=== PATIENT | male | born 1935 | race Caucasian/White ===

== ENCOUNTER 2016-07-29 14:24 | Emergency (ER) | payer MEDICARE, BC ==
[2016-07-29 14:33] VITALS: BP 141/68
--- NOTE | 2016-07-29 15:37 | EDM.PDOC ---
ED HPI GENERAL MEDICAL PROBLEM - General Chief Complaint: General Stated Complaint: circumcision bleeding Time Seen by Provider: 07/29/16 14:37 Source of Information: Reports: Patient History Limitations: Reports: No limitations - History of Present Illness INITIAL COMMENTS - FREE TEXT/NARRATIVE: Patient concerned about amount of bleeding from circumcision site. Wrapped in gauze, has pad on in underwear. Performed yesterday. Has Robertson in place. No complaints otherwise. Treatments LEGAL PROCESS SPECIALIST: Reports: Dressing(s) - Related Data Allergies Allergy/AdvReac Type Severity Reaction Status Date / Time cephalexin monohydrate Allergy Hives Verified 07/29/16 14:34 [From Keflex] Home Meds: Home Meds Fenofibrate 160 mg PO DAILY 06/02/15 [History] Simvastatin [Zocor] 40 mg PO BEDTIME 06/02/15 [History] SitaGLIPtin [Januvia] 100 mg PO DAILY 06/02/15 [History] metFORMIN HCl [Metformin HCl] 1,000 mg PO BID 06/02/15 [History] oxyCODONE HCl/Acetaminophen [oxyCODONE-Acetaminophen 5-325] 1 - 2 tab PO Q4H PRN 06/02/15 [History] Past Medical History HEENT History: Reports: Impaired vision, Other (see below) 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 Endocrine/Metabolic History: Reports: Diabetes, type II - Infectious Disease History Infectious Disease History: Reports: Chicken pox Other Infectious Disease History: chicken pox when was a kid - Past Surgical History HEENT Surgical History: Reports: Detached retina Musculoskeletal Surgical History: Reports: Knee replacement Other Musculoskeletal Surgeries/Procedures:: bilateral Social & Family History - Tobacco Use Smoking Status *Q: Never Smoker Second Hand Smoke Exposure: No - Recreational Drug Use Recreational Drug Use: No ED ROS GENERAL - Review of Systems Review Of Systems: ROS reveals no pertinent complaints other than HPI. ED EXAM, GENERAL - Physical Exam Exam: See Below Exam Limited By: No limitations General Appearance: alert, WD/WN, no apparent distress (Male) Exam: Other (Gauze wrapped around penis bloody/dry and stuck to penis. Soaked to remove bandage. Circumcision site appears to be healing well. Small area of blood noted where tissue was cut, no active bleeding at this time. ) Course - Vital Signs Last Recorded V/S: Last Vital Signs Temp 36.7 C 07/29/16 14:30 Pulse 84 07/29/16 14:30 Resp 16 07/29/16 14:30 BP 141/68 H 07/29/16 14:30 Pulse Ox 96 07/29/16 14:30 - Re-Assessments/Exams Free Text/Narrative Re-Assessment/Exam: Bandage changed by nurse. Non-stick vaseline gauze used near skin. Recommend recheck of wound and dressing change Wednesday morning (two days from now). Patient to follow up earlier if he has problems. Consider removing Robertson on Wednesday also if patient is comfortable. Departure - Departure Time of Disposition: 16:14 Disposition: Home, Self-Care 01 Condition: good Clinical Impression: Aftercare for circumcision Instructions: Circumcision, Adult, Care After, [id number] Referrals: PCP,Unknown [Ordering Only Provider] - Forms: ED Department Discharge Additional Instructions: Follow up Wednesday morning for dressing change. Follow up earlier as needed if you have problems.
== END 2016-07-29 16:30 | disposition home or self-care (01) ==
LOC: LL.ED 14:24
DX: Z48.816 Encounter for surgical aftercare following surgery on the genitourinary system (principal); E11.9 Type 2 diabetes mellitus without complications; H54.7 Unspecified visual loss; Z88.8 Allergy status to other drugs, medicaments and biological substances; Z79.899 Other long term (current) drug therapy; Z79.84 Long term (current) use of oral hypoglycemic drugs
CPT/HCPCS: 99281; 99283

== ENCOUNTER 2017-10-18 18:05 | Emergency (ER) | payer MEDICARE, BC ==
--- NOTE | 2017-10-18 18:18 | EDM.PDOC ---
ED HPI GENERAL MEDICAL PROBLEM - General Chief Complaint: Laceration Stated Complaint: fall with facial laceration Time Seen by Provider: 10/18/17 18:06 Source of Information: Reports: Patient, EMS History Limitations: Reports: No Limitations - History of Present Illness INITIAL COMMENTS - FREE TEXT/NARRATIVE: Patient brought in by EMS after fall. Was out mowing grass and ran out of gas. He was working on getting gas when he felt like he was leaning forward/suddenly off balance/and fell forward. Landed face down on grass. Denies LOC. Has abrasions of face. Patient denies any other injuries and says that he "feels fine" now. ROS negative for neck/chest/abd/back/lower limb/left upper limb pain. Right hand feels a bit stiff but no significant pain per patient. Denies feeling any pain in head/chest before fall. No SOB/diaphoresis/vertigo at time of fall. No history of similar falls in past. He did once have a syncopal episode after replacement surgery in 2016 Hx diabetes/high cholesterol Was mowing in 80+ degree humid weather. Family relates that patient has had shuffling gait that has gotten progressively worse over the past year and they have concerns that he may have Parkinsons. No formal evaluation. 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 Cardiovascular History: Reports: High Cholesterol Endocrine/Metabolic History: Reports: Diabetes, Type II - Infectious Disease History Infectious Disease History: Reports: Chicken Pox Other Infectious Disease History: chicken pox when was a kid - Past Surgical History HEENT Surgical History: Reports: Detached Retina Male Surgical History: Reports: Circumcision Musculoskeletal Surgical History: Reports: Knee Replacement Social & Family History - Tobacco Use Smoking Status *Q: Never Smoker - Alcohol Use Alcohol Use History: No - Recreational Drug Use Recreational Drug Use: No Drug Use in Last 12 Months: No ED ROS GENERAL - Review of Systems Review Of Systems: See Below Constitutional: Reports: No Symptoms HEENT: Reports: Nosebleed, Nose Pain (mild). Denies: Ear Pain, Eye Pain, Rhinitis, Throat Pain, Throat Swelling, Vertigo, Vision Change Respiratory: Reports: No Symptoms Cardiovascular: Reports: No Symptoms GI/Abdominal: Reports: No Symptoms : Reports: No Symptoms Musculoskeletal: Reports: Other (denies any acute changes other than right hand discomfort per HPI) Skin: Reports: Wound (forehead, nose) Neurological: Reports: No Symptoms, Gait Disturbance (as per HPI, patient has adopted a more shuffling gait/forward lean over the past 6-12months). Denies: Dizziness, Headache, Paresthesia, Pre-Existing Deficit, Syncope, Tingling, Tremors, Trouble Speaking Psychiatric: Reports: No Symptoms Hematologic/Lymphatic: Reports: No Symptoms ED EXAM, SKIN/RASH Exam: See Below Exam Limited By: No Limitations General Appearance: Alert, WD/WN, No Apparent Distress Eye Exam: Right Eye: Vision Changes (patient is blind in this eye), Left Eye: PERRL (right side is blind, milky appearance to cornea), Bilateral Eye: EOMI Ears: Normal External Exam, Normal Canal Nose: Other (dried blood right nare). No: Nasal Tenderness, Nasal Deformity, Nasal Swelling Throat/Mouth: Normal Lips, Normal Voice, No Airway Compromise, Other (upper dentures, has a few remaining lower teeth) Head: Other (abrasions over forehead and upper portion of nose) Neck: Normal Inspection, Supple, Non-Tender, Full Range of Motion. No: Tender Lateral, Tender Midline Respiratory/Chest: No Respiratory Distress, Lungs Clear, Normal Breath Sounds, No Accessory Muscle Use, Chest Non-Tender Cardiovascular: Normal Peripheral Pulses, Regular Rate, Rhythm, No Edema, No Murmur Peripheral Pulses: 2+: Radial (L), Radial (R) GI/Abdominal: Normal Bowel Sounds, Soft, Non-Tender, No Distention (Male) Exam: Deferred Rectal (Males) Exam: Deferred Back Exam: Normal Inspection. No: CVA Tenderness (L), CVA Tenderness (R), Muscle Spasm, Paraspinal Tenderness, Vertebral Tenderness Extremities: Non-Tender, Normal Capillary Refill, Other (patient able to make soft fist using right hand. No focal tenderness noted with palpation. No deformity/swelling/obvious injury) Neurological: Alert, Oriented, CN II-XII Intact, Normal Cognition, No Motor/ Sensory Deficits Psychiatric: Normal Affect, Normal Mood Skin: Warm, Dry, Ecchymosis (under left eye/nose), Wound/Incision (per HPI. Approximately 4cm by 3cm abrasion noted central forehead, 3cm by 3cm abrasion top portion of nose. Did not abrade completely through subcutacious tissue. ) Location, Skin: Head Course - Vital Signs Last Recorded V/S: Last Vital Signs Temp 37.1 C 10/18/17 18:05 Pulse 84 10/18/17 18:15 Resp 20 10/18/17 18:15 BP 164/78 H 10/18/17 18:15 Pulse Ox 97 10/18/17 18:15 - Orders/Labs/Meds Orders: Active Orders 24 hr Category Date Time Status UA W/MICROSCOPIC [URIN] Stat Lab 10/18/17 18:35 Ordered Labs: Laboratory Tests 10/18/17 10/18/17 Range/Units 18:50 18:50 WBC 8.4 (4.0-10.2) K/uL RBC 4.34 (4.33-5.41) M/uL Hgb 13.7 D (13.1-16.8) g/dL Hct 40.8 (39.0-49.0) % MCV 94.0 (84.0-98.0) fL MCH 31.6 (28.2-33.3) pg MCHC 33.6 (31.7-36.0) g/dL RDW 13.8 (11.2-14.1) % Plt Count 229 D (150-350) K/uL Neut % (Auto) 75.1 (45.0-80.0) % Lymph % (Auto) 14.5 (10.0-50.0) % Taylor % (Auto) 7.6 (2.0-14.0) % Eos % (Auto) 2.4 (0.0-5.0) % Baso % (Auto) 0.4 (0.0-2.0) % Neut # (Auto) 6.32 (1.40-7.00) K/uL Lymph # (Auto) 1.22 (0.50-3.50) K/uL Taylor # (Auto) 0.64 (0.00-1.00) K/uL Eos # (Auto) 0.20 (0.00-0.50) K/uL Baso # (Auto) 0.03 (0.00-0.20) K/uL Sodium 143 (136-145) mmol/L Potassium 4.2 (3.5-5.1) mmol/L Chloride 108 H (98-107) mmol/L Carbon Dioxide 27.2 (21.0-32.0) mmol/L BUN 28 H (7-18) mg/dL Creatinine 1.12 (0.51-1.17) mg/dL Est Cr Clr Drug Dosing TNP Estimated GFR (MDRD) > 60 mL/min Glucose 179 H (74-106) mg/dL Calcium 9.4 (8.5-10.1) mg/dL Total Bilirubin 0.4 (0.2-1.0) mg/dL AST 26 (15-37) U/L ALT 48 (12-78) U/L Alkaline Phosphatase 37 L (46-116) IU/L Total Protein 7.1 (6.4-8.2) g/dL Albumin 3.9 (3.4-5.0) g/dL Meds: Medications Discontinued Medications Generic Name Dose Route Start Last Admin Trade Name Freq PRN Reason Stop Dose Admin Neomycin/Polymyxin/Bacitracin 1 each 10/18/17 18:34 10/18/17 18:44 Triple Antibiotic Oint TOP 10/18/17 18:35 1 each ONETIME ONE Administration - Re-Assessments/Exams Free Text/Narrative Re-Assessment/Exam: Unable to repair abrasions on forehead/nose. Will need to heal by secondary intent. Cleansed by nursing staff using normal saline. Antibiotic/dressing then applied. Discussed wound care and precautions at length with both patient, , and son. Recommend wound recheck on , three days from now. To follow up as needed for any problems. Encouraged to contact primary provider for both this and also to look at Neuro referral for evaluation of Parkinson's concerns. Patient was walked in lina[place] by nurse. He was observed to have some difficulty initiating walk. Had more rapid pace. He then made conscious effort to slow gait down and take longer strides. He was however able to successfully ambulate down/back the linares as well as walk to bathroom. Departure - Departure Time of Disposition: 19:23 Disposition: Home, Self-Care 01 Condition: Good Clinical Impression: Abrasion of face Qualifiers: Encounter type: initial encounter Qualified Code(s): S00.81XA - Abrasion of other part of head, initial encounter Fall Qualifiers: Encounter type: initial encounter Qualified Code(s): W19.XXXA - Unspecified fall, initial encounter - Discharge Information Instructions: Parkinson Disease, [id number], Abrasion, [id number] Referrals: Anupama Smith PA-C [Primary Care Provider] - Forms: ED Department Discharge Additional Instructions: Follow up for wound checks/concerns as needed. Watch for any signs of infection and return to clinic/ER if this is noted. Follow up with primary provider and obtain referral to Neurology for evaluation of gait/etc for possible Parkinsonism. Use caution when ambulating. - My Orders Last 24 Hours: My Active Orders 10/18/17 18:35 UA W/MICROSCOPIC [URIN] Stat - Assessment/Plan Last 24 Hours: My Active Orders 10/18/17 18:35 UA W/MICROSCOPIC [URIN] Stat
[2017-10-18 18:31] VITALS: BP 164/78
[2017-10-18] MEDS: Bacitracin/Neomycin/Polymyxin B Oint 0.9 GM U/D Packet TOP ONE (18:44)
[2017-10-18 19:09] LABS: CHLORIDE,CL 108 mmol/L (98-107); SODIUM,NA 143 mmol/L (136-145)
== END 2017-10-18 19:40 | disposition home or self-care (01) ==
LOC: LL.ED 18:05
DX: S00.83XA Contusion of other part of head, initial encounter (principal); S00.33XA Contusion of nose, initial encounter; S00.81XA Abrasion of other part of head, initial encounter; E11.9 Type 2 diabetes mellitus without complications; Z88.1 Allergy status to other antibiotic agents; E78.00 Pure hypercholesterolemia, unspecified; Z79.84 Long term (current) use of oral hypoglycemic drugs; Z79.899 Other long term (current) drug therapy; W01.0XXA Fall on same level from slipping, tripping and stumbling without subsequent striking against object, initial encounter
CPT/HCPCS: 36415; 80053; 81001; 85025; 99284

== ENCOUNTER 2020-10-25 11:40 | Emergency (ER) | payer MEDICARE, BC ==
[2020-10-25 11:51] VITALS: BP 137/74; PULSE 79
--- NOTE | 2020-10-25 12:29 | EDM.PDOC ---
ED HPI GENERAL MEDICAL PROBLEM - General Chief Complaint: Upper Extremity Injury/Pain Stated Complaint: fall Time Seen by Provider: 10/25/20 12:09 Source of Information: Reports: Patient History Limitations: Reports: No Limitations - History of Present Illness INITIAL COMMENTS - FREE TEXT/NARRATIVE: Patient fell while out walking. Landed on left arm. No LOC. No breaks in skin. Comes to ER with complaint of some left rib pain and left shoulder discomfort. Denies other injuries. Fall happened approximately 30min prior to presentation. Left Shoulder Pain Score (Numeric/FACES): 8 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 Cardiovascular History: Reports: High Cholesterol Psychiatric History: Reports: None Endocrine/Metabolic History: Reports: Diabetes, Type II - Infectious Disease History Infectious Disease History: Reports: Chicken Pox Other Infectious Disease History: chicken pox when was a kid - Past Surgical History HEENT Surgical History: Reports: Detached Retina Male Surgical History: Reports: Circumcision Musculoskeletal Surgical History: Reports: Knee Replacement Other Musculoskeletal Surgeries/Procedures:: bilateral Social & Family History - Tobacco Use Tobacco Use Status *Q: Never Tobacco User - Caffeine Use Caffeine Use: Reports: Soda Review of Systems - Review of Systems Review Of Systems: See Below Constitutional: Reports: No Symptoms Eyes: Reports: No Symptoms, Glasses Ears: Reports: No Symptoms Nose: Reports: No Symptoms Mouth/Throat: Reports: No Symptoms Respiratory: Reports: No Symptoms Cardiovascular: Reports: Other (left lateral chest pain) GI/Abdominal: Reports: No Symptoms Genitourinary: Reports: No Symptoms Musculoskeletal: Reports: Other (Left shoulder/prox humerus discomfort). Denies: Joint Swelling Skin: Reports: No Symptoms Neurological: Reports: No Symptoms Psychiatric: Reports: No Symptoms ED EXAM, GENERAL - Physical Exam Exam: See Below Exam Limited By: No Limitations General Appearance: Alert, WD/WN, No Apparent Distress Eye Exam: Bilateral Eye: EOMI, PERRL Ears: Hearing Grossly Normal, Other (has hearing aids in place) Ear Exam: Bilateral Ear: Auricle Normal, Canal Normal Nose: No: Nasal Deformity, Nasal Swelling, Nasal Drainage Throat/Mouth: Normal Lips, Normal Voice, No Airway Compromise Head: Atraumatic, Normocephalic. No: Facial Swelling, Facial Tenderness, Sinus Tenderness Neck: Supple, Non-Tender, Full Range of Motion Respiratory/Chest: Lungs Clear, Normal Breath Sounds, No Accessory Muscle Use, Other (tender with palpation over left lateral chest wall, no crepitus. Reproduces patient's pain complaint) Cardiovascular: Regular Rate, Rhythm, No Edema, No Murmur GI/Abdominal: Soft, Non-Tender, No Distention (Male) Exam: Deferred Rectal (Males) Exam: Deferred Back Exam: No: CVA Tenderness (L), CVA Tenderness (R), Muscle Spasm, Paraspinal Tenderness, Vertebral Tenderness Extremities: Limited Range of Motion (left arm, discomfort around anterior shoulder rotator cuff with palpation. Cannot lift arm to 90 degrees. No deformity/bruising/swelling. NVI. Nontender left elbow/forearm/hand) Neurological: Alert, Oriented, CN II-XII Intact, Normal Cognition, Other (no sensory deficit) Psychiatric: Normal Affect, Normal Mood Skin Exam: Warm, Dry, Intact, Normal Color. No: Ecchymosis, Wound/Incision Course - Vital Signs Last Recorded V/S: Last Vital Signs Temp 36.1 C 10/25/20 11:40 Pulse 79 10/25/20 11:40 Resp 18 10/25/20 11:40 BP 137/74 10/25/20 11:40 Pulse Ox 95 10/25/20 11:40 - Orders/Labs/Meds Orders: Active Orders 24 hr Category Date Time Status Ribs 2V wo Chest Lt [CR] Stat Exams 10/25/20 11:44 Taken Shoulder Comp Lt [CR] Stat Exams 10/25/20 11:43 Taken - Re-Assessments/Exams Free Text/Narrative Re-Assessment/Exam: 10/25/20 13:28 Xray performed of left shoulder and left ribs. Shoulder and prox humerus appear intact. Suspicion for fracture left ribs #8, maybe 9. Pending formal radiology review. Plan at this time is to have patient continue PRN Tylenol/ice. Sling left arm for comfort. To perform incentive spirometry. Recommend recheck next week with PCP. Follow up in ER as needed PRN new problems/concerns. Patient agreeable with plan. Departure - Departure Time of Disposition: 12:58 Disposition: Home, Self-Care 01 Condition: Good Clinical Impression: Suspected fracture of rib of left side Qualifiers: Fracture type: closed Qualified Code(s): R29.898 - Other symptoms and signs involving the musculoskeletal system Fall Qualifiers: Encounter type: initial encounter Qualified Code(s): W19.XXXA - Unspecified fall, initial encounter Contusion of left shoulder Qualifiers: Encounter type: initial encounter Qualified Code(s): S40.012A - Contusion of left shoulder, initial encounter - Discharge Information *PRESCRIPTION DRUG MONITORING PROGRAM REVIEWED*: Not Applicable *COPY OF PRESCRIPTION DRUG MONITORING REPORT IN PATIENT BABS: Not Applicable Instructions: How to Use an Incentive Spirometer, How To Use a Sling, Fihn-rz-Beod, Shoulder Pain, Yuvv-[id number], Rib Fracture, [id number] Referrals: Anupama Smith PA-C [Primary Care Provider] - Forms: ED Department Discharge Additional Instructions: Ice sore areas. Take Tylenol for pain as needed. Do not exceed 4000mg daily dose as discussed. If you need something stronger, return to the ER as we discussed. Wear sling for comfort and protection during day. Make an appointment for recheck at your clinic next week. Return to ER if you have sudden worsening problems. Sepsis Event Note (ED) - Evaluation Sepsis Screening Result: No Definite Risk - Focused Exam Vital Signs: Vital Signs Temp Pulse Resp BP Pulse Ox 10/25/20 11:40 36.1 C 79 18 137/74 95 - My Orders Last 24 Hours: My Active Orders 10/25/20 11:43 Shoulder Comp Lt [CR] Stat 10/25/20 11:44 Ribs 2V wo Chest Lt [CR] Stat - Assessment/Plan Last 24 Hours: My Active Orders 10/25/20 11:43 Shoulder Comp Lt [CR] Stat 10/25/20 11:44 Ribs 2V wo Chest Lt [CR] Stat
== END 2020-10-25 13:20 | disposition home or self-care (01) ==
LOC: LL.ED 11:40
DX: S40.012A Contusion of left shoulder, initial encounter (principal); R07.81 Pleurodynia; E11.9 Type 2 diabetes mellitus without complications; E78.00 Pure hypercholesterolemia, unspecified; Z03.89 Encounter for observation for other suspected diseases and conditions ruled out; Z88.1 Allergy status to other antibiotic agents; Z79.84 Long term (current) use of oral hypoglycemic drugs; Z79.899 Other long term (current) drug therapy; W18.30XA Fall on same level, unspecified, initial encounter; Y93.01 Activity, walking, marching and hiking
CPT/HCPCS: 71100-LT; 73030-LT; 99283; 99283-25

== ENCOUNTER 2021-02-09 21:00 | Emergency (ER) | payer MEDICARE, BC ==
[2021-02-09 21:20] VITALS: BP 154/74; PULSE 75
--- NOTE | 2021-02-09 22:00 | EDM.PDOC ---
ED HPI GENERAL MEDICAL PROBLEM - General Chief Complaint: Gastrointestinal Problem Stated Complaint: Constipated Time Seen by Provider: 02/09/21 21:15 Source of Information: Reports: Patient History Limitations: Reports: No Limitations - History of Present Illness INITIAL COMMENTS - FREE TEXT/NARRATIVE: Patient presents to the ED with constipation problems. has been having problems off and on for weeks. Last bowel movement 4-5 days ago but was not significant. Saw his PCP in the past for this, advised miralax. Has been taking this and a fiber pill but not able to have significant bowel movement, but is passing pass, small amounts of stool. Has not tried an enema. Has had a colonoscopy in the remote past. Tonight the rectal pressure became too much for him to tolerate. has been eating and drinking, no fevers or urinary [id number]. 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 Cardiovascular History: Reports: High Cholesterol Psychiatric History: Reports: None Endocrine/Metabolic History: Reports: Diabetes, Type II - Infectious Disease History Infectious Disease History: Reports: Chicken Pox Other Infectious Disease History: chicken pox when was a kid - Past Surgical History HEENT Surgical History: Reports: Detached Retina Male Surgical History: Reports: Circumcision Musculoskeletal Surgical History: Reports: Knee Replacement Other Musculoskeletal Surgeries/Procedures:: bilateral Social & Family History - Tobacco Use Tobacco Use Status *Q: Never Tobacco User Second Hand Smoke Exposure: No - Caffeine Use Caffeine Use: Reports: Soda ED ROS GENERAL - Review of Systems Review Of Systems: See Below Constitutional: Reports: No Symptoms HEENT: Reports: No Symptoms Respiratory: Reports: No Symptoms Cardiovascular: Reports: No Symptoms Endocrine: Reports: No Symptoms GI/Abdominal: Reports: Abdominal Pain (cramping only), Constipation. Denies: Decreased Appetite : Reports: No Symptoms Musculoskeletal: Reports: No Symptoms Skin: Reports: No Symptoms ED EXAM, GENERAL - Physical Exam Exam: See Below Exam Limited By: No Limitations General Appearance: Alert, WD/WN, No Apparent Distress Eye Exam: Bilateral Eye: EOMI, PERRL Ears: Normal External Exam, Hearing Loss Nose: Normal Inspection Throat/Mouth: Normal Inspection, Normal Lips, Normal Teeth, Normal Voice Head: Atraumatic Respiratory/Chest: No Respiratory Distress, Lungs Clear, Normal Breath Sounds Cardiovascular: Regular Rate, Rhythm, No Edema, No Murmur GI/Abdominal: Normal Bowel Sounds, Soft, Non-Tender, No Mass Rectal (Males) Exam: Fecal Impaction, Other (small chronic sore consistent with chronic irritation in the buttock fold. patient states is chronic. not blee ding or infected). No: Black Stool, Bloody Stool Course - Vital Signs Last Recorded V/S: Last Vital Signs Temp 36.2 C 02/09/21 21:17 Pulse 75 02/09/21 21:17 Resp 14 02/09/21 21:17 BP 154/74 H 02/09/21 21:17 Pulse Ox 97 02/09/21 21:17 - Orders/Labs/Meds Orders: Active Orders 24 hr Category Date Time Status Enema [RC] ASDIRECTED Care 02/09/21 21:33 Active - Re-Assessments/Exams Free Text/Narrative Re-Assessment/Exam: 02/09/21 21:59 after some manual disimpaction of stool in the rectal vault, patient was given a fleets enema and had a good bowel movement. encouraged continued miralax, increased fiber and water intake and follow up with PCP Departure - Departure Time of Disposition: 21:55 Disposition: Home, Self-Care 01 Condition: Good Clinical Impression: Constipation, Fecal impaction in rectum - Discharge Information *PRESCRIPTION DRUG MONITORING PROGRAM REVIEWED*: Not Applicable *COPY OF PRESCRIPTION DRUG MONITORING REPORT IN PATIENT BABS: Not Applicable Instructions: Chronic Constipation, Fecal Impaction Additional Instructions: It is important to take in adequate water, especially when you are taking fiber pills to help bulk up the stool and aid in moving it along the colon. one capful of miralax in 10 ounces of water a day will help in keeping you regular along with a stool softener. Do not take laxative pills as your body will become dependent on them. Prune juice, pear juice are natural laxatives. You can also purchase magnesium citrate available over the counter for severe constipation but this is the same medication you take for a bowel prep so be prepared for a large continuous bowel movement. Sepsis Event Note (ED) - Focused Exam Vital Signs: Vital Signs Temp Pulse Resp BP Pulse Ox 02/09/21 21:17 36.2 C 75 14 154/74 H 97 - My Orders Last 24 Hours: My Active Orders 02/09/21 21:33 Enema [RC] ASDIRECTED - Assessment/Plan Last 24 Hours: My Active Orders 02/09/21 21:33 Enema [RC] ASDIRECTED
== END 2021-02-09 22:05 | disposition home or self-care (01) ==
LOC: LL.ED 21:00
DX: K56.41 Fecal impaction (principal); E78.00 Pure hypercholesterolemia, unspecified; E11.9 Type 2 diabetes mellitus without complications; Z79.84 Long term (current) use of oral hypoglycemic drugs; Z88.1 Allergy status to other antibiotic agents; Z79.899 Other long term (current) drug therapy
CPT/HCPCS: 99283; 99284

== ENCOUNTER 2023-12-09 10:59 | Emergency (ER) | payer MEDICARE, OTHER ==
[2023-12-09 11:04] VITALS: BP 146/92; PULSE 81
[2023-12-09 11:35] LABS: BASOPHILS ABSOLUTE AUTO 0.03 K/uL (0.00-0.20); BASOPHILS PERCENT AUTO 0.4 % (0.0-2.0); EOSINOPHILS ABSOLUTE AUTO 0.31 K/uL (0.00-0.50); EOSINOPHILS PERCENT AUTO 4.5 % (0.0-5.0); HEMATOCRIT 41.5 % (39.0-49.0); HEMOGLOBIN 13.6 g/dL (13.1-16.8); LYMPHOCYTES ABSOLUTE AUTO 0.87 K/uL (0.50-3.50); LYMPHOCYTES PERCENT AUTO 12.6 % (10.0-50.0); MEAN CORPUSCULAR HEMOGLOBIN 31.8 pg (28.2-33.3); MEAN CORPUSCULAR HGB CONC 32.8 g/dL (31.7-36.0); MONOCYTES ABSOLUTE AUTO 0.65 K/uL (0.00-1.00); MONOCYTES PERCENT AUTO 9.4 % (2.0-14.0); NEUTROPHILS ABSOLUTE AUTO 5.06 K/uL (1.40-7.00); NEUTROPHILS PERCENT AUTO 73.1 % (45.0-80.0); PLATELET COUNT,PLT 160 K/uL (150-350); RED BLOOD CELL COUNT 4.28 M/uL (4.33-5.41); RED CELL DISTRIBUTION WIDTH 15.6 % (11.2-14.1); WHITE BLOOD CELL COUNT,WBC 6.9 K/uL (4.0-10.2)
[2023-12-09 12:08] LABS: ALANINE AMINOTRANSFERASE,ALT 31 U/L (12-78); ALBUMIN 3.7 g/dL (3.4-5.0); ALKALINE PHOSPHATASE 75 IU/L (46-116); ANION GAP 11.9 meq/L (7-15); ASPARTATE AMNIOTRANSFERASE,AST 26 U/L (15-37); BILIRUBIN TOTAL 0.5 mg/dL (0.2-1.0); BLOOD UREA NITROGEN,BUN 33 mg/dL (7-18); CALCIUM 9.2 mg/dL (8.5-10.1); CARBON DIOXIDE,CO2 26.1 mmol/L (21.0-32.0); CHLORIDE,CL 107 mmol/L (98-107); GLUCOSE RANDOM 152 mg/dL (70-99); POTASSIUM,K 4.3 mmol/L (3.5-5.1); PROTEIN TOTAL,TP 7.2 g/dL (6.4-8.2); SODIUM,NA 145 mmol/L (136-145)
[2023-12-09 12:09] LABS: ESTIMATED GFR 65 mL/min (>=60)
== END 2023-12-09 13:20 | disposition home or self-care (01) ==
LOC: LL.ED 10:59
DX: R03.0 Elevated blood-pressure reading, without diagnosis of hypertension (principal); E78.00 Pure hypercholesterolemia, unspecified; E11.9 Type 2 diabetes mellitus without complications; Z79.82 Long term (current) use of aspirin; Z79.899 Other long term (current) drug therapy; Z88.1 Allergy status to other antibiotic agents
CPT/HCPCS: 36415; 80053; 85025; 93005; 99284

== ENCOUNTER 2024-03-16 19:10 | Emergency (ER) | payer MEDICARE, OTHER ==
[2024-03-16 21:18] VITALS: BP 135/111; PULSE 59
== END 2024-03-16 21:30 | disposition expired ==
LOC: LL.ED 19:10
DX: I46.9 Cardiac arrest, cause unspecified (principal); E78.00 Pure hypercholesterolemia, unspecified; E11.9 Type 2 diabetes mellitus without complications; Z88.8 Allergy status to other drugs, medicaments and biological substances; Z79.82 Long term (current) use of aspirin; Z79.899 Other long term (current) drug therapy
CPT/HCPCS: 99285